=== PATIENT | female | born 1940 | race Caucasian/White ===

== ENCOUNTER → 2016-10-12 | Outpatient (CLI) | payer MEDICARE, OTHER | LOC: COL.RAD 11:21 | DX: M79.671 Pain in right foot (principal) | CPT/HCPCS: J3301; Q9967 ==

== ENCOUNTER → 2018-07-05 | Outpatient (CLI) | payer MEDICARE, OTHER | LOC: COL.RAD 07:51 | DX: M19.071 Primary osteoarthritis, right ankle and foot (principal) | CPT/HCPCS: J3301; Q9967 ==